=== PATIENT | female | born 1985 | race Caucasian/White ===

== ENCOUNTER 2023-07-07 11:19 | Outpatient (CLI) | payer OTHER ==
[2023-07-07 17:48] LABS: BASOPHILS # (AUTO) 0.1 10^3/uL (0.0-0.1); BASOPHILS % (AUTO) 0.9 %; EOSINOPHILS # (AUTO) 0.1 10^3/uL (0.0-0.7); EOSINOPHILS % (AUTO) 1.1 %; HCT - HEMATOCRIT 38.7 % (37.0-47.0); LYMPHOCYTES # (AUTO) 2.3 10^3/uL (1.5-3.5); LYMPHOCYTES % (AUTO) 28.1 %; MEAN CORPUSCULAR HEMOGLOBIN 30.4 pg (27.0-31.0); MEAN CORPUSCULAR HGB CONC 33.6 g/dL (32.0-36.0); MEAN CORPUSCULAR VOLUME 90.4 fL (81.0-99.0); MONOCYTES # (AUTO) 0.5 10^3/uL (0.0-1.0); MONOCYTES % (AUTO) 5.8 %; NEUTROPHILS # (AUTO) 5.2 10^3/uL (1.5-6.6); NEUTROPHILS % (AUTO) 63.6 %; PLT - PLATELET COUNT 266 10^3/uL (130-450); RED BLOOD COUNT 4.28 10^6/uL (4.20-5.40); WHITE BLOOD COUNT 8.1 x10^3/uL (4.8-10.8)
[2023-07-08 08:11] LABS: RPR Non Reactive (Non Reactive)
[2023-07-08 09:10] LABS: HBsAG SCREEN Negative (Negative); HCV AB Non Reactive (Non Reactive); VARICELLA-ZOSTER AB IGG 2214 index (Immune >165)
[2023-07-08 18:08] LABS: HIV SCREEN 4TH GENERATION Non Reactive (Non Reactive)
== END 2023-07-07 11:20 | disposition home or self-care (01) ==
LOC: LAB.N 11:19
PROVIDERS: ATTEND Obstetrics & Gynecology
DX: Z34.90 Encounter for supervision of normal pregnancy, unspecified, unspecified trimester (principal)
CPT/HCPCS: 36415; 85025; 86592; 86762; 86787; 86803; 86850; 86900; 86901; 87340; 87389

== ENCOUNTER 2023-07-09 12:28 | Outpatient (CLI) | payer OTHER ==
--- NOTE | 2023-07-09 15:13 | Ultrasound Report ---
PROCEDURE: OB 1st Trimester w/TV INDICATIONS: POSITIVE TEST OUTSIDE/PRIOR DATING DATA: Last menstrual period (LMP): Not available. LMP-based estimated date of delivery (JAZMIN): Not available. First dating scan (date and location): This study. Estimated date of delivery (JAZMIN) from first dating scan: No cardiac activity seen.. TECHNIQUE: Real-time scanning was performed of the fetus and maternal pelvic organs, with image documentation. Endovaginal scanning was also performed to better visualize the fetus and maternal ovaries. COMPARISON: None. FINDINGS: Intrauterine gestational sac present. Embryo: [place]-rump length 6 mm which correlates with a gestational age of 6 weeks 3 days Heart rate: No cardiac activity seen. Other: No perigestational fluid collection. Measurement variability in dating: +/- 4 weeks by LMP, +/- 7 days by mean sac diameter (use before 6 weeks gestation if crown-rump length not able to be measured), +/- 5 days by crown-rump length (6-12 weeks gestation). Maternal organs: Ovaries appear within normal limits. IMPRESSION: Intrauterine gestation with estimated gestational age 6 weeks 3 days but no cardiac activity se en. Correlation with quantitative beta hCG may be warranted. Reviewed by: Jose Blanco MD on 07/09/2023 3:12 PM PST Approved by: Jose Blanco MD on 07/09/2023 3:12 PM PST Station ID: [id number]
== END 2023-07-09 12:29 | disposition home or self-care (01) ==
LOC: DI 12:28
PROVIDERS: ATTEND Obstetrics & Gynecology
DX: O36.8310 Maternal care for abnormalities of the fetal heart rate or rhythm, first trimester, not applicable or unspecified (principal); Z3A.01 Less than 8 weeks gestation of pregnancy

== ENCOUNTER 2023-07-14 10:59 | Outpatient (CLI) | payer OTHER ==
--- NOTE | 2023-07-14 13:28 | Ultrasound Report ---
PROCEDURE: OB Transvaginal INDICATIONS: MISSED at the time of the previous study, a crown-rump rump length of 6 weeks 3 days was identified without heart rate. OUTSIDE/PRIOR DATING DATA: Last menstrual period (LMP): Unknown. LMP-based estimated date of delivery (JAZMIN): Unknown. First dating scan (date and location): 07/09/2023. Estimated date of delivery (JAZMIN) from first dating scan: Uncertain TECHNIQUE: Real-time scanning was performed of the fetus, with image documentation. Endovaginal scanning: Performed COMPARISON: 07/09/2023 FINDINGS: Again noted is a crown-rump length without a heartbeat. [place]-rump length measures 0.7 cm, 6 weeks 5 days. There is a yolk sac. A minimal subchorionic hemorrhage has developed. IMPRESSION: Nonviable first trimester intrauterine . No interval growth times the past 5 da ys. No heart beat noted. Comment: A preliminary report was given by the snowsport instructor to the referring clinician at the time of the study. Reviewed by: Long Manjarrez MD on 07/14/2023 1:27 PM PST Approved by: Long Manjarrez MD on 07/14/2023 1:27 PM PST Station ID: [id number]
== END 2023-07-14 11:00 | disposition home or self-care (01) ==
LOC: DI 10:59
PROVIDERS: ATTEND Obstetrics & Gynecology
DX: O02.1 Missed abortion (principal)

== ENCOUNTER 2024-02-16 08:00 | Outpatient (CLI) | payer OTHER ==
[2024-02-16 16:17] LABS: BILIRUBIN,URINE NEGATIVE (NEGATIVE); GLUCOSE, URINE (UA) NEGATIVE (NEGATIVE); KETONES,URINE (UA) NEGATIVE (NEGATIVE); LEUKOCYTE ESTERASE, URINE NEGATIVE (NEGATIVE); NITRITE,URINE NEGATIVE (NEGATIVE); OCCULT BLOOD,URINE NEGATIVE (NEGATIVE); PH,URINE 8.5 PH (5.0-7.5); PROTEIN,URINE NEGATIVE (NEGATIVE); UROBILINOGEN,URINE 0.2 (NORMAL) E.U./dL (NORMAL)
[2024-02-16 16:57] LABS: AMORPHOUS SEDIMENT,UR Moderate /LPF; BACTERIA,URINE Rare /HPF (None Seen); CLARITY,URINE CLEAR (CLEAR); RBC,URINE None Seen /HPF (0-5); SQUAMOUS EPITHELIAL CELL,UR FEW Squamous (<= Few)
== END 2024-02-16 23:59 | disposition home or self-care (01) ==
LOC: LAB.WC 08:00
PROVIDERS: ATTEND Obstetrics & Gynecology
DX: Z34.90 Encounter for supervision of normal pregnancy, unspecified, unspecified trimester (principal)
CPT/HCPCS: 81001; 87086

== ENCOUNTER 2024-03-01 17:18 | Outpatient (CLI) | payer OTHER ==
--- NOTE | 2024-03-01 22:40 | Ultrasound Report ---
PROCEDURE: OB 1st Trimester w/TV INDICATIONS: POSITIVE TEST OUTSIDE/PRIOR DATING DATA: Last menstrual period (LMP): 12/08/2023. LMP-based estimated date of delivery (JAZMIN): 10-06. First dating scan (date and location): 02/18/2024. Estimated date of delivery (JAZMIN) from first dating scan: 09/28/2023. TECHNIQUE: Real-time scanning was performed of the fetus and maternal pelvic organs, with image documentation. Endovaginal scanning was also performed to better visualize the fetus and maternal ovaries. COMPARISON: None FINDINGS: Intrauterine gestational sac present. Embryo: Single live intrauterine is identified with crown-rump length measuring 3.2 cm cor responding to 10 weeks 0 days Heart rate: 173 bpm. Other: 1.6 x 0.9 x 2.47 and 1.9 x 1.2 x 1.8 cm subchorionic hemorrhages are identified. Measurement variability in dating: +/- 4 weeks by LMP, +/- 7 days by mean sac diameter (use before 6 weeks gestation if crown-rump length not able to be measured), +/- 5 days by crown-rump length (6-12 weeks gestation). Maternal organs: Ovaries demonstrate a left corpus luteal cyst IMPRESSION: Single live intrauterine is identified measuring 10 weeks 0 days. Recommend follow up imagi ng at 20-22 weeks for dates and anatomy. Small subchorionic hemorrhages as above. Reviewed by: Miri Carey MD on 03/01/2024 10:39 PM PDT Approved by: Miri Carey MD on 03/01/2024 10:39 PM PDT Station ID: [id number]
== END 2024-03-01 17:19 | disposition home or self-care (01) ==
LOC: DI 17:18
PROVIDERS: ATTEND Obstetrics & Gynecology
DX: O20.8 Other hemorrhage in early pregnancy (principal); Z3A.10 10 weeks gestation of pregnancy

== ENCOUNTER 2024-09-18 18:30 | Inpatient (IN) ==
[2024-09-18] MEDS ORDERED: hydrALAZINE INJ 20 MG/ML VIAL IVP PRN (18:49)
[2024-09-18] MEDS ORDERED: ONDANSETRON 4 MG/2 ML VIAL IVP PRN ×2 (18:49→19:10)
[2024-09-18] MEDS ORDERED: METHYLERGONOVINE 0.2 MG/ML VIAL IM PRN (18:49)
[2024-09-18] MEDS ORDERED: LABETALOL 20 MG/4 ML SYRINGE IVP PRN ×3 (18:49)
[2024-09-18] MEDS ORDERED: TERBUTALINE 1 MG/ML VIAL SUBQ PRN (18:49)
[2024-09-18] MEDS ORDERED: ACETAMINOPHEN 500 MG TABLET PO PRN (18:49)
[2024-09-18] MEDS ORDERED: NIFEdipine 10 MG CAPSULE PO PRN (18:49)
[2024-09-18] MEDS ORDERED: OXYTOCIN 10 UNIT/ML VIAL IM PRN (18:49)
[2024-09-18] MEDS ORDERED: lidocaine 1% 20 ML MDV ID PRN (18:49)
[2024-09-18] MEDS ORDERED: fentaNYL 100 MCG/2 ML VIAL IVP PRN (18:49)
[2024-09-18] MEDS ORDERED: SODIUM CHLORIDE FLUSH 0.9% 10 ML SYRINGE IVP PRN (18:49)
[2024-09-18] MEDS ORDERED: miSOPROStoL 200 MCG TABLET PR PRN (18:49)
[2024-09-18] MEDS ORDERED: LACTATED RINGERS 1,000 ML IV PRN (18:49)
[2024-09-18] MEDS ORDERED: TRANEXAMIC ACID IN NACL 1,000 MG/100 ML BAG IV PRN (18:49)
[2024-09-18] MEDS ORDERED: miSOPROStoL 200 MCG TABLET BC PRN (18:49)
[2024-09-18] MEDS ORDERED: LACTATED RINGERS 1,000 ML ONE (18:55)
[2024-09-18] MEDS ORDERED: OXYTOCIN/SODIUM CHLORIDE 500 ML IV ONE (18:55)
--- OUTSIDE RECORDS SUMMARY | 2024-09-18 18:58 | EXTERNAL MEDICAL SUMMARY RPT | Continuity of Care Document ---
Author Organization [facility] Address [address] [place] [id number] Phone Problems date description facility 2024-06-27 14:45 Encounter for superv ision of other normal , second trimester [facility] 2024-06-27 14:46 Encounter for superv ision of other normal , second trimester [facility] 2024-06-27 14:47 Encounter for superv ision of other normal , second trimester [facility] 2024-06-27 14:48 Encounter for superv ision of other normal , second trimester [facility] 2024-06-27 14:49 Encounter for superv ision of other normal , second trimester [facility] 2024-06-27 14:50 Encounter for superv ision of other normal , second trimester [facility] 2024-06-27 14:51 Encounter for superv ision of other normal , second trimester [facility] 2024-06-27 14:52 Encounter for superv ision of other normal , second trimester [facility] 2024-06-29 11:53 Encounter for superv ision of other normal , second trimester [facility] 2024-06-29 11:53 Encounter for superv ision of normal , unspecified, unspecified trimester [facility] 2024-06-30 00:05 Encounter for superv ision of other normal , second trimester [facility] 2024-06-30 00:05 Encounter for superv ision of normal , unspecified, unspecified trimester [facility] 2024-06-30 10:59 Encounter for superv ision of other normal , second trimester [facility] 2024-07-10 13:07 Encounter for superv ision of other normal , second trimester [facility] 2024-07-10 13:21 Encounter for superv ision of other normal , second trimester [facility] 2024-07-11 00:03 Anemia complicating , unspecified trimester [facility] 2024-07-11 00:03 Encounter for superv ision of other normal , second trimester [facility] 2024-07-17 15:26 Uterine size-date discrepancy, unspecified trimester [facility] 2024-07-21 08:47 Uterine size-date discrepancy, unspecified trimester [facility] 2024-07-21 08:50 Uterine size-date discrepancy, unspecified trimester [facility] 2024-07-24 18:35 Uterine size-date discrepancy, unspecified trimester [facility] 2024-07-25 00:01 Uterine size-date discrepancy, unspecified trimester [facility] 2024-07-26 09:25 Uterine size-date discrepancy, third trimester [facility] 2024-07-26 11:07 Encounter for superv ision of other normal , second trimester [facility] 2024-07-26 11:25 Encounter for superv ision of other normal , second trimester [facility] 2024-07-26 11:27 Encounter for superv ision of other normal , second trimester [facility] 2024-07-26 13:41 Encounter for [facility] 2024-07-26 13:41 Encounter for superv ision of other normal , second trimester [facility] 2024-07-29 00:02 Encounter for immunization id [facility] 2024-08-02 15:38 Encounter for superv ision of other normal , second trimester [facility] 2024-08-03 14:10 Encounter for superv ision of other normal , second trimester [facility] 2024-08-07 08:58 Encounter for superv ision of other normal , second trimester [facility] 2024-08-07 09:00 Encounter for superv ision of other normal , second trimester [facility] 2024-08-07 09:11 Encounter for superv ision of other normal , second trimester [facility] 2024-08-08 00:02 Encounter for superv ision of other normal , second trimester [facility] 2024-08-08 06:35 Uterine size-date discrepancy, unspecified trimester [facility] 2024-08-08 11:25 Uterine size-date discrepancy, unspecified trimester [facility] 2024-08-08 11:31 Uterine size-date discrepancy, unspecified trimester [facility] 2024-08-16 18:32 Uterine size-date discrepancy, unspecified trimester [facility] 2024-08-17 00:02 Uterine size-date discrepancy, unspecified trimester [facility] 2024-08-18 12:25 Uterine size-date discrepancy, third trimester [facility] 2024-08-18 16:02 Encounter for superv ision of other normal , second trimester [facility] 2024-08-22 12:52 Encounter for superv ision of other normal , second trimester [facility] 2024-08-22 12:53 Encounter for superv ision of other normal , second trimester [facility] 2024-08-22 12:58 Encounter for superv ision of other normal , second trimester [facility] 2024-08-22 12:59 Encounter for superv ision of other normal , second trimester [facility] 2024-08-22 13:59 Encounter for superv ision of other normal , second trimester [facility] 2024-08-23 04:26 Uterine size-date discrepancy, unspecified trimester [facility] 2024-08-30 15:00 Uterine size-date discrepancy, unspecified trimester [facility] 2024-08-30 15:41 Uterine size-date discrepancy, unspecified trimester [facility] 2024-08-30 15:42 Uterine size-date discrepancy, unspecified trimester [facility] 2024-08-30 16:22 Encounter for superv ision of other normal , second trimester [facility] 2024-08-31 18:03 Uterine size-date discrepancy, unspecified trimester [facility] 2024-09-01 00:02 Uterine size-date discrepancy, unspecified trimester [facility] 2024-09-04 08:17 Uterine size-date discrepancy, third trimester [facility] 2024-09-04 08:55 Encounter for superv ision of other normal , second trimester [facility] 2024-09-04 08:56 Encounter for superv ision of other normal , second trimester [facility] 2024-09-04 09:05 Encounter for superv ision of other normal , second trimester [facility] 2024-09-04 09:06 Encounter for superv ision of other normal , [facility] 09:07 Encounter for screeni ng for Streptococcus B [facility] 2024-09-04 09:07 Allergy status to penicillin [facility] 2024-09-04 09:37 Encounter for superv ision of other normal , [facility]04 09:37 Encounter for screeni ng for Streptococcus B [facility] 2024-09-04 09:37 Allergy status to penicillin [facility] 2024-09-04 09:39 Encounter for superv ision of other normal , [facility]04 09:39 Encounter for screeni ng for Streptococcus B [facility] 2024-09-04 09:39 Allergy status to penicillin [facility] 2024-09-04 14:10 Supervision of elderly multigra afua, third trimester [facility] 2024-09-04 14:10 Encounter for superv ision of other normal , [facility] 14:10 Encounter for screeni ng for Streptococcus B [facility] 2024-09-04 14:10 Allergy status to penicillin [facility] 2024-09-05 00:03 Encounter for screeni ng for Streptococcus B [facility] 2024-09-05 00:03 Allergy status to penicillin [facility] 2024-09-05 06:54 Encounter for screeni ng for Streptococcus B [facility] 2024-09-06 11:01 Encounter for superv ision of other normal , [facility] 11:29 Encounter for superv ision of other normal , [facility] 2024-[facility]06 11:32 Encounter for superv ision of other normal , [facility] 2024-09[facility]06 11:33 Encounter for superv ision of other normal , second trimester [facility] 2024-09-11 08:54 Encounter for superv ision of other normal , [facility] 2024-09-11 08:55 Encounter for superv ision of other normal , [facility] 2024-09-11 09:03 Encounter for superv ision of other normal , [facility] 2024-09-11 10:26 Encounter for superv ision of other normal , second trimester [facility] 2024-09-12 09:24 Encounter for superv ision of other normal , [facility] 2024-09-18 08:57 Encounter for superv ision of other normal , second trimester [facility] 2024-09-18 08:58 Encounter for superv ision of other normal , second trimester [facility] 2024-09-18 09:07 Encounter for superv ision of other normal , second trimester [facility] 2024-09-18 09:35 Encounter for superv ision of other normal , [facility] Results/Labs test date facility value unit notes Result panel 1 HGB - HEMOGLOBIN 2024-06-29 13:02 [facility] 11.0 g /dl (missing) WHITE BLOOD COUNT 2024-06-29 13:02 [facility] 11.7 x10 3/ul (missing) RED CELL DISTRIBUTION WIDTH 2024-06-29 13:02 [facility] 12.6 % (missing) RED BLOOD COUNT 2024-06-29 13:02 [facility] 3.59 10 6/ul (missing) MEAN CORPUSCULAR HEMOGLOBIN 2024-06-29 13:02 [facility] 30.6 pg (missing) PLT - PLATELET COUNT 2024-06-29 13:02 [facility] 307 10 3/ul (missing) HCT - HEMATOCRIT 2024-06-29 13:02 [facility] 32.6 % (missing) MEAN CORPUSCULAR HGB CONC 2024-06-29 13:02 [facility] 33 .7 g/dl (missing) MEAN PLATELET VOLUME 2024-06-29 13:02 [facility] 9.8 fl (missing) MEAN CORPUSCULAR VOLUME 2024-06-29 13:02 [facility] 90.8 fl (missing) GLUCOSE,1H PP 50GM DOSE 2024-06-29 13:02 [facility] 95 mg/dl Social History date description facility
[2024-09-18] MEDS: SODIUM CHLORIDE FLUSH 0.9% 10 ML SYRINGE IVP SCH (19:00)
[2024-09-18] MEDS: OXYTOCIN/SODIUM CHLORIDE 500 ML IV PRN (19:04)
[2024-09-18 19:06] LABS: BASOPHILS # (AUTO) 0.1 10^3/uL (0.0-0.1); BASOPHILS % (AUTO) 0.5 %; EOSINOPHILS # (AUTO) 0.1 10^3/uL (0.0-0.7); EOSINOPHILS % (AUTO) 0.3 %; LYMPHOCYTES # (AUTO) 3.6 10^3/uL (1.5-3.5); LYMPHOCYTES % (AUTO) 20.1 %; MEAN CORPUSCULAR HEMOGLOBIN 30.9 pg (27.0-31.0); MEAN CORPUSCULAR HGB CONC 34.2 g/dL (32.0-36.0); MEAN CORPUSCULAR VOLUME 90.3 fL (81.0-99.0); MONOCYTES # (AUTO) 1.1 10^3/uL (0.0-1.0); MONOCYTES % (AUTO) 6.4 %; NEUTROPHILS # (AUTO) 12.7 10^3/uL (1.5-6.6); NEUTROPHILS % (AUTO) 72.1 %; PLT - PLATELET COUNT 307 10^3/uL (130-450); RED BLOOD COUNT 4.21 10^6/uL (4.20-5.40); RED CELL DISTRIBUTION WIDTH 12.9 % (12.0-15.0); WHITE BLOOD COUNT 17.7 x10^3/uL (4.8-10.8)
[2024-09-18] MEDS ORDERED: CALCIUM CARBONATE CHEW 500 MG TABLET PO PRN (19:10)
[2024-09-18] MEDS ORDERED: WITCH HAZEL/GLYCERIN 1 PAD TOP PRN (19:10)
[2024-09-18] MEDS ORDERED: SIMETHICONE CHEW 80 MG TABLET PO PRN (19:10)
--- NOTE | 2024-09-18 19:15 | DELIVERY NOTE ---
Delivery Note Labor Labor: positive Spontaneous Infant Delivery Method Infant Delivery Method: positive Spontaneous vaginal delivery Presentation Presentation: positive Vertex Nuchal Cord Nuchal Cord: positive None Amniotic Fluid Description Amniotic Fluid Description: positive Moderate meconium Laceration Laceration: positive None [place]: positive Placed in direct skin contact with mother and [place] used sex: positive Female Cord Cord: positive 3 vessels Placenta Placenta: positive Intact Estimated Blood Loss Estimated Blood Loss (in cc): 150 Post Delivery Events Post Delivery Events: positive No post delivery events Delivery Comments (Free Text/Narrative) Delivery Comments (Free Text/Narrative): Preoperative Diagnoses 38 weeks gestation Elderly multigravida Term labor/SROM Postoperative Diagnoses Same Delivery of live ortiz Status post spontaneous vaginal delivery Summary Patient presented at 38 weeks 5 days gestation complaining of leaking fluid and contractions. She was checked and found to be 7 cm and ebcca regularly. While moving to a labor room, her water broke spontaneously. She was using nitrous oxide for labor management as an IV was started, but was imminently delivering. Delivery Summary: Patient was placed in the dorsal lithotomy position. Upon maternal pushing the head was delivered atraumatically followed by the anterior shoulder, posterior shoulder, then the remainder of the infant's body. A female infant was delivered with APGARS of 9 at 1 minute and 10 at 5 minutes. The infant was placed on its mother's chest . After the cord finished pulsating, the umbilical cord was clamped times two and cut. The placenta delivered intact with three vessel cord. Placenta was not sent to pathology. Thirty units of Pitocin were added to the IV fluid and allowed to run freely. Uterine massage was performed until uterus was deemed firm. Upon inspection of the perineum, vagina and cervix were intact. Upon re- inspection the patient was hemostatic. Uterus again massaged and found to be firm. Needle and sponge counts were correct. Patient was stable and allowed to recover in L&D room. was stable and remained in room with mother. weight is pending at this time.
--- NOTE | 2024-09-18 19:19 | HISTORY & PHYSICAL EXAMINATION ---
Admit History Visit Reason Visit Reason: Contractions and Membranes rupture : 4 Parity: 2 Smoking Status: Never smoker Other Maternal History Other Maternal History: Patient is a 38-year-old G4, P2 at 38 weeks 5 days gestation presenting for leaking fluid and contractions. She has good movement. Jess and laboring and transition. No further history obtained as imminent delivery. All other symptoms reviewed and were negative except per HPI. 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 Sons live in [place] with their dad Manuel in [employer]. 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 Mental health issues: on Adderall 10 mg on non work days, 20 mg work days, lamotrigine 200 mg QD, Lexapro 10 mg QD. managed by Dr. [place] at [facility] in [facility]. Decreased lamotrigine to 100mg in 3rd trimester. Borderline anemia at 11.0. Size less than dates: Ultrasound at 29 weeks showed 36 percentile. Repeat EFW 11th percentile, 2396 g at 36 weeks. AMA: NSTs weekly. Pre- Weight:136.2 BMI: 24.21 Blood type: AB+ Antibody: negative CBC: PLT 266 HCT 38.7 HGB 13.0 RUB: immune VZV: immune HBsAg: negative HepC: NR RPR/AB-EIA:NR HIV:NR PAP: 2023 HPV+ GC/CT: 03/15 Negative HSV:denies in self and partner Genetic testing: [place] Normal; AFP- Neg Covid: 07/28 Flu: 05/10 FAS:scheduled 05/19 Placenta: anterior without previa Cord: 3VC KONSTANTIN: WNL EFW: 439g; 40th%ile 50gm OGCT: 95 3HR GTT: TDAP: 07/26/2024 Breast Pump: Given 3rd trimester PLT 307 32.6/11.0 RPR: Nonreactive GBS: 09/04/2024 Negative Contraception: Meds/Allgy Home Medications Ambulatory Orders Medication Instructions Recorded Confirmed escitalopram oxalate 10 mg tablet 10 mg PO QDAY 04/04/24 09/18/24 (Lexapro) vits no.126-ferrous fum tab PO 04/04/24 09/18/24 28 mg iron-folic acid 800 mcg tablet (Classic ) dextroamphetamine-amphetamine 10 10 mg PO QDAY 04/12/24 09/18/24 mg tablet (Adderall) lamotrigine 200 mg tablet 100 mg PO QDAY 09/18/24 09/18/24 Allergies Allergies Allergy/AdvReac Type Severity Reaction Status Date / Time bee venom protein (honey bee) Allergy Unknown Unknown Verified 09/06/24 11:01 Penicillins Allergy Unknown Unknown Verified 09/06/24 11:01 PFS Active Problems All Active Problems (Updated 09/18/24 @ 19:18 by John Cadena MD) Meconium in amniotic fluid (Acute) Supervision of elderly multigravida (Acute) Penicillin allergy (Acute) Uterine size date discrepancy (Acute) Anemia affecting (Acute) Anxiety with depression (Acute) Bipolar 1 disorder (Acute) Medical History Medical History (Updated 09/18/24 @ 19:18 by John Cadena MD) Normal in multigravida in second trimester Placenta previa antepartum in second trimester seen on office US 05/10, just covering os. Vaginal delivery x 2, no complications History of PCOS Surgical History Surgical History (Updated 05/10/24 @ 11:45 by Angie Cano MD) History of tonsillectomy (~1995) Family History Family History (Updated 05/10/24 @ 11:48 by Angie Cano MD) Mother Asthma Allergies Mental disorder Father Mental disorder Sister Alcohol abuse Mental disorder Son Age: 10 No problems noted. Son Age: 8 No problems noted. Social History Social History (Updated 05/10/24 @ 11:49 by Angie Cano MD) Smoking Status: Never smoker Living arrangement: At home Living Situation Details: FOB deployed with [employer] until September. Sons live with their dad in [place]. Physical Activity: None Level: Independent ETOH Use: None Substance Use: denies use Are you sexually active?: Yes Control Method: None Occupation: SEXUAL ABUSE COUNSELLOR at [employer] Review of Systems Status of ROS: 10 or more systems reviewed and unremarkable except as noted in history and below Physical Other Notes Labor Progress Note/Additional Text: General: Alert, oriented,Active labor. Head: Normal cephalic atraumatic Eyes: PERRLA, extraocular motions intact. Respiratory: Normal rate of respiration. No accessory muscle use, normal respiratory effort. Abdomen: Gravid, nontender, nondistended Extremities: Normal range of motion Neuro: Oriented x3. Normal movements Psych: Appropriate mood and affect. Normal judgment and insight SVE: /+1 Plan for Labor Plan For Labor I expect patient to be DC'd or transferred within 96 hours.: Yes Conclusion/Plan Problem List (1) Supervision of elderly multigravida: Plan: Admit to L&D, admit labs, nitrous oxide for pain control. Imminent delivery, no NST performed. See delivery note. Qualifiers: Trimester: third trimester Qualified Code(s): O09.523 - Supervision of elderly multigravida, third trimester (2) Meconium in amniotic fluid: Plan: Seen while pushing Lab Results 09/18/24 18:55
[2024-09-18 19:20] LABS: ALBUMIN 4.3 g/dL (3.2-5.5); ALBUMIN/GLOBULIN RATIO 1.4 (1.0-2.2); BILIRUBIN,TOTAL 0.3 mg/dL (0.2-1.0); CALCIUM 9.7 mg/dL (8.5-10.3); CREATININE 0.6 mg/dL (0.6-1.3); POTASSIUM 3.7 mmol/L (3.5-4.5); TOTAL PROTEIN 7.4 g/dL (6.4-8.9)
[2024-09-18] MEDS: lamoTRIgine 25 MG TABLET PO SCH (21:04)
[2024-09-18] MEDS: LACTATED RINGERS 1,000 ML IV SCH (21:12)
[2024-09-18] MEDS: CALCIUM CARBONATE CHEW 500 MG TABLET PO SCH (21:13)
[2024-09-18] MEDS: IBUPROFEN 600 MG TABLET PO SCH (23:31)
[2024-09-18] MEDS: ACETAMINOPHEN 500 MG TABLET PO SCH (23:32)
[2024-09-19] MEDS: ESCITALOPRAM 10 MG TABLET PO SCH (08:20)
[2024-09-19] MEDS ORDERED: lamoTRIgine 100 MG TABLET PO SCH (09:00)
--- NOTE | 2024-09-19 11:10 | Discharge Summary ---
Discharge Summary Admit Date: 09/18/24 Discharge Date: 09/19/24 Discharging Provider: John Cadena MD Code Status: Attempt Resuscitation DIAGNOSES Admission Diagnoses: Term labor 38 weeks gestation Discharge Diagnoses with Status of Each Condition: Status post spontaneous vaginal delivery Delivery of live ortiz HPI History of Present Illness: Subjective Patient reports she is doing well. Lochia appropriate. Denies heavy bleeding. Ambulating. Pelvic and abdominal pain well-controlled. Tolerating oral intake. Diet: Regular. Voiding without difficulty. Passing flatus. Denies BM. Patient is bonding with baby in room Breast feeding going well. Denies feeling lightheaded, dizzy or excessively fatigued Objective General: Alert, oriented, no apparent distress. Cardiovascular: Regular rate. Regular rhythm. Lungs: No increased work of breathing. Abdomen: Uterus firm. Below umbilicus. No guarding or rebound. Extremities: No pain on palpation. No cords palpated. Distal pulses intact. HOSPITAL COURSE Hospital Course: Patient presented at 38 weeks 5 days gestation in active labor with spontaneous rupture of membranes upon arrival. She was 7 cm and becca regularly. She progressed quickly and had an uncomplicated spontaneous vaginal delivery. course was unremarkable and she was discharged with her on day 1. ALLERGIES Allergies Allergy/AdvReac Type Severity Reaction Status Date / Time bee venom protein (honey bee) Allergy Unknown Unknown Verified 09/06/24 11:01 Penicillins Allergy Unknown Unknown Verified 09/06/24 11:01 MEDICATIONS Ambulatory Orders Medication Instructions Recorded Confirmed escitalopram oxalate 10 mg tablet 10 mg PO QDAY 04/04/24 09/18/24 (Lexapro) vits no.126-ferrous fum tab PO 04/04/24 09/18/24 28 mg iron-folic acid 800 mcg tablet (Classic ) dextroamphetamine-amphetamine 10 10 mg PO QDAY 04/12/24 09/18/24 mg tablet (Adderall) lamotrigine 200 mg tablet 50 mg (1/4 x 200 mg) PO BID #60 09/19/24 09/18/24 tabs PHYSICAL EXAM AT DISCHARGE Vital Signs: Vital Signs x48h Temp Pulse Resp BP Pulse Ox 09/19/24 09:25 36.9 C 82 16 121/66 98 09/19/24 04:22 36.8 C 68 16 111/50 L LABS 09/18/24 18:55 09/18/24 18:55 FOLLOW UP Follow Up: [facility] 1 week [facility] TIME SPENT Time Spent in Discharge (Minutes): 20 Discharge Plan Discharge Patient Disposition: 01 Home, Self Care Medically Cleared Date:: 09/19/24 Prescriptions: Continued Classic 28 mg iron- 800 mcg tablet PO escitalopram oxalate [Lexapro] 10 mg tablet 10 mg PO QDAY dextroamphetamine-amphetamine [Adderall] 10 mg tablet 10 mg PO QDAY Changed lamotrigine 200 mg tablet 50 mg PO BID Qty: 60 0RF Activity Restrictions: Additional Comments Print Language: Frisian Patient Instructions: Vaginal After, Depression
[2024-09-19 16:13] VITALS: BP 121/56; TEMP 98.2; O2SAT 99
--- NOTE | 2024-09-19 19:56 | Labor Flowsheet ---
Labor Flowsheet Datetime Report Generated by CPN: 09/19/2024 19:56 Datetime: 09/19/2024 15:57 VITAL SIGNS NBP Sys/Berta/Mean (mmHg): 121 : 56 : 72 Pulse: 63 Datetime: 09/18/2024 20:09 SpO2 (%): 100 Datetime: 09/18/2024 19:37 Membranes Ruptured Date/Time: 09/18/2024 18:44 Membranes Rupture Method: Spontaneous Amniotic Fluid Color: Light Meconium Amniotic Fluid Amount: Large Amniotic Fluid Odor: Normal Datetime: 09/18/2024 19:15 Stage of : Datetime: 09/18/2024 19:04 MEDICATIONS Medication Comments: PP IV pitocin started Datetime: 09/18/2024 18:40 VAGINAL EXAM Dilatation (cm): 8.0 Effacement (%): 100 Station: 0 Exam by: Reyna RN Vaginal Bleeding: Normal Show Cervix, Consistency: Soft Cervix, Position: Anterior
== END 2024-09-19 19:46 | disposition home or self-care (01) | DRG 807 ==
LOC: WFO 18:30 → FBP 18:32
PROVIDERS: ADMIT Obstetrics & Gynecology; ATTEND Obstetrics & Gynecology
DX: O99.02 Anemia complicating childbirth; F41.9 Anxiety disorder, unspecified; F31.9 Bipolar disorder, unspecified; O77.0 Labor and delivery complicated by meconium in amniotic fluid; Z3A.38 38 weeks gestation of pregnancy; Z79.899 Other long term (current) drug therapy; O99.344 Other mental disorders complicating childbirth; Z37.0 Single live birth